=== PATIENT | female | born 1975 | race Caucasian/White ===

== ENCOUNTER 2017-02-24 07:34 | Emergency (ER) | payer OTHER | END 2017-02-24 09:59 | disposition home or self-care (01) | LOC: ER 07:34 | DX: K74.60 Unspecified cirrhosis of liver (principal); R14.0 Abdominal distension (gaseous); R10.9 Unspecified abdominal pain; M54.9 Dorsalgia, unspecified; Z86.19 Personal history of other infectious and parasitic diseases; Z79.899 Other long term (current) drug therapy | CPT/HCPCS: 51702; 96361; 96374; 96375; 99285-25 ==